=== PATIENT | female | born 2005 | race Two or more races ===

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

== ENCOUNTER 2025-03-22 13:53 | Emergency (ER) | payer MEDICAID, OTHER ==
[~2025-03-22] VITALS: Ht 157.5 cm; Wt 69.0 kg
[~2025-03-22 13:53] MED LIST changes: +CIPHCO RIGHT EAR
[2025-03-22 14:03] VITALS: O2SAT 100
[2025-03-22 15:30] LABS: BASOPHILS % 0.1 % (0.0-2.0); EOSINOPHILS % 0.7 % (0.0-5.0); HEMATOCRIT. 36.3 % (36.0-48.0); HEMOGLOBIN. 12.0 g/dL (12.0-16.0); LYMPHOCYTES % 12.5 % (20.0-50.0); MEAN PLATELET VOLUME 7.8 fl (7.4-10.4); MONOCYTES % 6.7 % (2.0-8.0); NEUTROPHILS % 80.0 % (40.0-76.0); PLATELET 313 x1000/uL (130-400); RED BLOOD CELL COUNT 4.10 mill/uL (4.2-5.4); RED CELL DISTRIBUTION WIDTH 13.3 % (11.6-14.6)
[2025-03-22 15:45] LABS: INR 1.1
[2025-03-22 15:46] LABS: CREATININE 0.8 mg/dL (0.6-1.0); UREA NITROGEN BLOOD 8 mg/dL (9-23)
[2025-03-22 15:48] LABS: ASPARTATE AMINOTRANSFERASE 11 IU/L (<34); BILIRUBIN DIRECT 0.2 mg/dL (<=3.0); BILIRUBIN TOTAL 0.6 mg/dL (0.1-1.0); PROTEIN TOTAL 8.4 g/dL (6.0-8.3)
[2025-03-22 15:52] LABS: HCG SCREEN NEGATIVE
[2025-03-22] MEDS: SODIUM CHLORIDE 0.9% (SEPSIS BOLUS) IV ONE (16:00)
[2025-03-22] MEDS: AMPICILLIN SOD/SULBACTAM NA 3 G in SODIUM CHLORIDE 0.9% 100 ML IV SCH (16:00)
[2025-03-22] MEDS: IOHEXOL-300 100 ML BOTTLE ONE (17:15)
[2025-03-22] MEDS: ACETAMINOPHEN 325MG TABLET PO ONE (17:44)
[2025-03-22 18:17] LABS: GLUCOSE URINE NEGATIVE (NEGATIVE); KETONES URINE 1+ (NEGATIVE); LEUKOCYTE ESTERASE URINE TRACE (NEGATIVE); NITRITE URINE NEGATIVE (NEGATIVE); OCCULT BLOOD URINE 1+ (NEGATIVE); PH URINE 6.0 (4.5-8.0); PROTEIN URINE NEGATIVE (NEGATIVE); SPECIFIC GRAVITY URINE 1.030 (1.005-1.030); UROBILINOGEN URINE 0.2 E.U./dL (0.2-1.0)
[2025-03-22 18:42] LABS: CLARITY URINE SL HAZY (CLEAR); COLOR URINE STRAW (YELLOW)
[2025-03-22 18:45] LABS: BACTERIA URINE NONE SEEN; RBC URINE 0-2 /hpf (0-2); SQUAMOUS EPITHELIAL CELL URINE 1+ /lpf (RARE/1+); WBC URINE 0-2 /hpf (0-2)
[2025-03-22 21:50] VITALS: BP 117/76; PULSE 99; RESP 17; TEMP 37.1; O2SAT 100
== END 2025-03-22 22:53 | disposition short-term general hospital (02) ==
LOC: ER 13:53
DX: R22.1 Localized swelling, mass and lump, neck (principal); J45.909 Unspecified asthma, uncomplicated; Z88.6 Allergy status to analgesic agent; Z91.010 Allergy to peanuts; Z79.899 Other long term (current) drug therapy; Z86.73 Personal history of transient ischemic attack (TIA), and cerebral infarction without residual deficits
CPT/HCPCS: 80076; 80048; 81003; 84703; 83605; 85025; 85610; 87040; 87086; 36415; 84145; 71045; 70491; 93005; 96365; 96366; 99291; Q9967; J0295; J7050; J7030; Z7610